=== PATIENT | female | born 1990 | race Native Hawaiian/Other Pacific Islander ===

== ENCOUNTER 2017-05-08 14:13 | Emergency (ER) | payer OTHER ==
[~2017-05-08] VITALS: Ht 165.1 cm; Wt 83.9 kg
[2017-05-08 14:26] VITALS: TEMP 98.2
[2017-05-08 15:44] LABS: PLATELET COUNT 267 K/uL (152-353)
[2017-05-08 15:53] LABS: POTASSIUM 3.6 mmol/L (3.6-5.2)
[2017-05-08 16:26] VITALS: BP 132/82
== END 2017-05-08 16:28 | disposition home or self-care (01) ==
LOC: ED 14:13
DX: O21.9 Vomiting of pregnancy, unspecified (principal)
CPT/HCPCS: 36415; 80053; 81000; 81025; 85027; 99283